=== PATIENT | female | born 1970 | race Caucasian/White ===

== ENCOUNTER 2019-01-04 06:58 | Emergency (ER) | payer BC ==
--- NOTE | 2019-01-04 07:19 | Emergency Department Record ---
History of Present Illness - General Chief Complaint: Pain Stated Complaint: RIB PAIN Time Seen by Provider: 01/04/19 07:11 Source: Patient Mode of Arrival: Ambulatory Limitations: No limitations - History of Present Illness Initial Comments: 48 yo female presents right sided chest and rib pain for about 2 months. The pain is sharp and it hurts to take a deep breath, cough, or moves. She saw her doctor about 6 weeks ago. She had a chest XR ray that she reports this was negative. She also noted swollen glands in her axilla and submandibular area now resolved. No rash. No fever. No association with eating or food and she has had her gall bladder removed. No fever. The pain comes and goes but never completely resolves. MD Complaint: Chest pain -: Month(s) (6) Onset: Other (with cough, or deep breath) Pain Location: Right chest Pain Radiation: None Severity: Moderate Quality: Sharp Consistency: Intermittent Improves With: Nothing Worsens With: Movement, Palpation, Other (Cough) Context: Other Anginal Symptoms: Other Other Symptoms: Cough Treatments Prior to Arrival: None - Related Data Previous Rx's Medication Instructions Recorded Methylprednisolone [Medrol Dose 4 mg PO DAILY #1 tab.ds.pk 01/04/19 Pack] Allergies Allergy/AdvReac Type Severity Reaction Status Date / Time acetaminophen Allergy Unverified 11/22/18 18:21 [From Darvocet-N] propoxyphene napsylate Allergy Unverified 11/22/18 18:21 [From Darvocet-N] Review of Systems Constitutional: Denies: Chills, Fever, Malaise, Weakness Eyes: Denies: Eye discharge ENT: Denies: Congestion, Dental pain, Ear pain, Epistaxis, Hearing loss Respiratory: Reports: Cough. Denies: Stridor, Wheezes Cardiovascular: Reports: Chest pain. Denies: Edema, Palpitations, Syncope Endocrine: Denies: Fatigue Gastrointestinal: Denies: Abdominal pain, Diarrhea, Nausea, Vomiting Genitourinary: Denies: Dysuria, Urgency Musculoskeletal: Denies: Arthralgia, Back pain, Joint swelling, Myalgia Skin: Denies: Bruising, Change in color, Rash Neurological: Denies: Headache Psychiatric: Denies: Anxiety Hematological/Lymphatic: Reports: Swollen glands. Denies: Blood Clots, Easy bleeding, Easy bruising Physical Exam - General General Appearance: Alert, Oriented x3, Cooperative, No acute distress Limitations: No limitations - Head Head exam: Atraumatic, Normal inspection - Eye Eye exam: Normal appearance. negative: Conjunctival injection, Scleral icterus - ENT ENT exam: Normal exam, Mucous membranes moist Ear exam: Normal external inspection Nasal Exam: Normal inspection Mouth exam: Normal external inspection - Neck Neck exam: Normal inspection, Full ROM. negative: Lymphadenopathy, Meningismus - Respiratory Respiratory exam: Normal lung sounds bilaterally, Chest wall tenderness (right lateral ribs lower). negative: Accessory muscle use, Decreased breath sounds, Prolonged expiratory, Respiratory distress - Cardiovascular Cardiovascular Exam: Regular rate, Normal rhythm, Normal heart sounds. negative : Tachycardia Peripheral Pulses: 2+: Radial (R), Radial (L) - GI/Abdominal GI/Abdominal exam: Soft. negative: Guarding, Tenderness - Rectal Rectal exam: Deferred - exam: Deferred - Extremities Extremities exam: Normal inspection. negative: Pedal edema, Tenderness - Back Back exam: Denies: CVA tenderness (R), CVA tenderness (L) - Neurological Neurological exam: Alert, Oriented X3 - Psychiatric Psychiatric exam: Normal affect, Normal mood. negative: Agitated, Anxious - Skin Skin exam: Dry, Intact, Normal color, Warm Course Vital Signs 01/04/19 07:04 Temperature 98.4 F Pulse Rate [ 107 H Pulse Ox Probe] Respiratory 20 Rate Blood Pressure 134/60 [Left Arm] Pulse Ox 97 - Reevaluation(s) Reevaluation #1: 01/04/19 07:51 The labs were reviewed The CBC no acute abnormalities The CMP with no acute abnormalities 01/04/19 07:52 01/04/19 08:18 The CTA was negative for acute process. We discussed the incidental findings. She will follow up with her PCP for any ongoing further work up Medical Decision Making - Lab Data Result diagrams: 01/04/19 07:22 01/04/19 07:22 Disposition Disposition: Discharge Clinical Impression: Chest pain, pleuritic Disposition: Home, Self-Care Condition: (1) Good Instructions: Chest Pain (ED) Additional Instructions: Call your doctor for continued follow up next available appointment Be seen immediately if you have fevers, chills, short of breath or any new concerns Discuss the tests performed in the ER with your doctor Prescriptions: Methylprednisolone [Medrol Dose Pack] 4 mg PO DAILY #1 tab.ds.pk Forms: Patient Portal Access Time of Disposition: 08:19 Quality - Quality Measures Quality Measures: N/A - Blood Pressure Screening Does Patient Have Any of the Following: No Blood Pressure Classification: Pre-Hypertensive BP Reading Systolic Measurement: 134 Diastolic Measurement: 60 Screening for High Blood Pressure: < Pre-Hypertensive BP, F/U Documented > [ [id number]] Pre-Hypertensive Follow-up Interventions: Referral to alternative/primary care provider.
[2019-01-04 07:28] LABS: BASO % 0.3 % (0-6); EOS % 3.2 % (0-6); GRAN % 49.4 % (47-80); HEMATOCRIT 42.9 % (35.0-47.0); HEMOGLOBIN 14.3 gm/dl (11.6-16.0); LYMPH % 36.6 % (16-45); MEAN CELL VOLUME 97.3 fl (81-97); MEAN CORPUSCULAR HEMOGLOBIN 32.4 pg (27-33); MEAN CORPUSCULAR HGB CONC 33.3 g/dl (32-36); MONO % 10.5 % (0-9); PLATELET COUNT 261 K/uL (130-400); RED BLOOD COUNT 4.41 M/uL (3.80-5.40); RED CELL DISTRIBUTION WIDTH 13.4 % (11.5-14.5); WHITE BLOOD COUNT W/O DIFF 3.7 K/uL (4.2-12.2)
[2019-01-04 07:36] LABS: BLOOD UREA NITROGEN 7 mg/dL (6-20); CREATININE 0.6 mg/dL (0.5-0.9); EST GLOMERULAR FILTRATION RATE > 60 mL/min
[2019-01-04 07:37] LABS: TOTAL PROTEIN 7.3 g/dL (6.6-8.7)
[2019-01-04 07:39] LABS: GLUCOSE,RANDOM 109 mg/dL (74-109)
[2019-01-04 07:41] LABS: ALT/SGPT 17 U/L (<33); AST/SGOT 19 U/L (10.0-35.0)
[2019-01-04 07:42] LABS: ALB/GLOB RATIO 1.4 (1.1-1.8); ALBUMIN 4.3 g/dL (4.0-5.0); ALKALINE PHOSPHATASE 66 U/L (35-104)
[2019-01-04] MEDS ORDERED: KETOROLAC 30 MG/ML VIAL IVP ONE (07:50)
[2019-01-04] MEDS ORDERED: METHYLPREDNISOLONE PF 125MG/VIAL IVP ONE (08:17)
--- NOTE | 2019-01-07 14:27 | CT ANGIOGRAM REPORT ---
DATE: 01/04/2019 at 0741. EXAM: CTA OF THE CHEST WITH CONTRAST. HISTORY: Pain under right breast radiating to back. TECHNIQUE: Routine CT angiogram examination of the thorax is performed utilizing a pulmonary embolus protocol with 85 mL of Omnipaque 350 utilized. Maximum-intensity projection reformatted images are generated in the coronal and sagittal planes and are reviewed.c COMPARISON: None. FINDINGS: Opacification of the pulmonary arteries is satisfactory for interpretation. No luminal filling defect is noted in the outflow tract, main arteries, lobar arteries, nor proximal segmental arteries to suggest acute pulmonary embolic disease. The heart is not grossly enlarged. No evidence of right-sided heart strain. The thoracic aorta is without focal aneurysmal dilatation or evidence of dissection. No mediastinal or hilar mass/lymphadenopathy. Mild patchy opacities are noted in the dependent lung bases consistent with atelectasis. Infiltrate is less likely. Mild bi-apical lung scarring. No pleural or pericardial effusion. The adrenal glands are not enlarged, though the inferior left adrenal gland is slightly nodular. There is a 2.0 mm, nonobstructing calculus in the upper pole of the right kidney. A tiny, contour-deforming, hypodense lesion is noted within the anterolateral upper left kidney measuring 5.0 to 6.0 mm. This is nonspecific but likely a cyst. No lytic or blastic bone lesion. IMPRESSION: 1. NO CT ANGIOGRAPHY EVIDENCE OF ACUTE PULMONARY EMBOLIC DISEASE NOR THORACIC AORTIC DISSECTION. 2. PATCHY OPACITIES WITHIN THE DEPENDENT LOWER LUNGS CONSISTENT WITH ATELECTASIS OR LESS LIKELY INFILTRATE. MINOR BI-APICAL LUNG SCARRING . 3. TINY, NONOBSTRUCTING CALCULUS IN THE UPPER POLE OF THE RIGHT KIDNEY. TOO- [id number] HYPODENSE LESION IN THE LEFT KIDNEY IS NONSPECIFIC BUT LIKELY A CYST. Job Number: [id number] [facility]
== END 2019-01-04 08:32 | disposition home or self-care (01) ==
LOC: ER 06:58
DX: R07.1 Chest pain on breathing (principal); R05 Cough
CPT/HCPCS: 99284 ×2; 96374; 96375; 85025; 80053; 84703; 71275; Q9967; J1885; J2930